=== PATIENT | female | born 1990 | race Caucasian/White ===

== ENCOUNTER 2019-02-17 16:20 | Inpatient (IN) | payer OTHER ==
[~2019-02-17] VITALS: Ht 157.5 cm; Wt 88.4 kg
[2019-02-17 16:48] VITALS: BP 118/78; PULSE 83; RESP 18; Ht 157.5 cm; Wt 88.4 kg
[2019-02-17] MEDS ORDERED: PNV11TAB PO (16:50)
[2019-02-17] MEDS ORDERED: MISOPROSTOL 200 MCG TAB PR PRN ×2 (17:00→23:00)
[2019-02-17] MEDS ORDERED: OXYTOCIN 30 UNITS/LR 500 ML IV PRN ×2 (17:00→23:00)
[2019-02-17] MEDS ORDERED: LIDOCAINE 1% (MPF) 30 ML INJ INJ PRN (17:00)
[2019-02-17] MEDS ORDERED: CARBOPROST 250 MCG INJ IM PRN ×2 (17:00→23:00)
[2019-02-17] MEDS ORDERED: BUTORPHANOL 2 MG INJ IV PRN ×2 (17:00)
[2019-02-17] MEDS ORDERED: METHYLERGONOVINE 0.2 MG INJ IM PRN ×2 (17:00→23:00)
[2019-02-17] MEDS ORDERED: OXYTOCIN 30 UNITS/LR 500 ML IV SCH (17:00)
[2019-02-17] MEDS: LACTATED RINGER'S 1,000 ML IV SCH ×3 (17:26→19:14)
--- NOTE | 2019-02-17 18:37 | PREAC ---
Date/Time of Note Date/Time of Note DATE: 02/17/19 TIME: 18:36 Anesthesia Eval and Record Evaluation Time Pre-Procedure Interview DATE: 02/17/19 TIME: 18:36 Age 28 Sex female NPO: 8 hrs Preoperative diagnosis intrauterine Planned procedure labor epidural Past Medical History Past Medical History: Includes : : (4), Para: (3) Surgery & Anesthesia Issues No known issue Meds Anticoagulation: No Beta Raymundo within 24 hr: No Reason Beta Raymundo not given: Pt. not on B-Raymundo Reported Medications [id number] ( 19) 1 Each Tablet, 1 TAB PO DAILY, TAB 02/17/19 Current Medications Lactated Ringer's 1,000 ml @ 125 mls/hr Q8H IV Last administered on 02/17/19at 18:10; Admin Dose 125 MLS/HR; Start 02/17/19 at 16:55 Butorphanol Tartrate (Stadol) 1 mg Q2H PRN IV .PAIN SCALE 1-5; Start 02/17/19 at 17:00 Butorphanol Tartrate (Stadol) 2 mg Q2H PRN IV .PAIN SCALE 6-10; Start 02/17/19 at 17:00 Lidocaine (Xylocaine 1% (Mpf)) 30 ml ONCE PRN INJ .EPISIOTOMY; Start 02/17/19 at 17:00 Oxytocin/Lactated Ringer's 500 ml @ 500 mls/hr ONCE POST IV ; Start 02/17/19 at 17:00 Oxytocin/Lactated Ringer's 500 ml @ 125 mls/hr POST IV ; Start 02/17/19 at 17:00 Oxytocin/Lactated Ringer's 500 ml @ 0 mls/hr ONCE PRN IV .VAGINAL BLEEDING; Start 02/17/19 at 17:00 Methylergonovine Maleate (Methergine) 0.2 mg ONCE PRN IM .VAGINAL BLEEDING; Start 02/17/19 at 17:00 Carboprost Tromethamine (Hemabate) 250 mcg ONCE PRN IM .VAGINAL BLEEDING; Start 02/17/19 at 17:00 Misoprostol (Cytotec) 1,000 mcg ONCE PRN NE .VAGINAL BLEEDING; Start 02/17/19 at 17:00 Meds reviewed: Yes Allergies Coded Allergies: No Known Allergy (Unverified , 02/17/19) Allergies Reviewed: Yes Labs/Studies Labs Reviewed: Reviewed by anesthesiologist Result Diagram: 02/17/19 1730 Laboratory Tests 02/17/19 17:30 test: N/A Pre-procedure Exam Last vitals Vital Signs Date Temp Pulse Resp B/P (MAP) Pulse Ox O2 O2 Flow FiO2 Time Delivery Rate 02/17/19 98.1 83 18 118/78 16:48 (91) Airway: Adequate mouth opening, Adequate thyromental dist Mallampati: Mallampati II Teeth: Normal Lung: Normal Heart: Normal ASA Physical Status ASA physical status: 2 Emergency: None Planned Anesthetic Neuraxial: Epidural Planned Pain Management Epidural, Parenteral pain med Pre-operative Attestations Prior to commencing anesthesia and surgery, the patient was re-evaluated, there was verification of: *The patient's identity *The results of appropriate recent lab work and preoperative vital signs *The above evaluation not changing prior to induction *Anesthetic plan, risk benefits, alternative and complications discussed with patient/family; questions answered; patient/family understands, accepts and wishes to proceed. BUTCH HU MD February 17, 2019 18:37
[2019-02-17] MEDS ORDERED: NALOXONE (0.4 MG/ML) INJ IV PRN (19:00)
[2019-02-17] MEDS ORDERED: FENTAnyl 2MCG/ML-ROPIV 0.2% 100 ML BAG EPI SCH (19:00)
[2019-02-17] MEDS ORDERED: ONDANSETRON 4 MG INJ IV PRN (19:00)
[2019-02-17] MEDS ORDERED: DIPHENHYDRAMINE 50 MG INJ IV PRN (19:00)
--- NOTE | 2019-02-17 19:45 | PAC ---
Date/Time of Note Date/Time of Note DATE: 02/17/19 TIME: 19:45 Post-Anesthesia Notes Post-Anesthesia Note Last documented vital signs Vital Signs Date Temp Pulse Resp B/P (MAP) Pulse Ox O2 O2 Flow FiO2 Time Delivery Rate 02/17/19 98.1 83 18 118/78 16:48 (91) Activity: WNL Respiratory function: WNL Cardiovascular function: WNL Mental status: Baseline Pain reasonably controlled: Yes Hydration appropriate: Yes Nausea/Vomiting absent: Yes Comments BP: 118/78 HR: 72 RR: 16 T: 98 SaO2: 99% BUTCH HU MD February 17, 2019 19:45
[2019-02-17] MEDS: OXYTOCIN 30 UNITS/LR 500 ML IV SCH (20:34)
--- NOTE | 2019-02-17 21:12 | HP ---
Date/Time of Note Date/Time of Note DATE: 02/17/19 TIME: 20:59 OB - History Hx of Present Free Text/Dictation 28y.o here at triage at 38w6d after SROM at 1550 on 02/17/19 with occasional UC's VE /-2 , nitrazine positive CAT II tracing with variable dec with baseline 135 visit was initiated at 10weeks ,unevenful exceopt 1hr GTT abn f/b 3hr GTT WNL, platelet low 136 Lele 01/26/19, on admission 130K GBS neg admitted for expectant management. Chief Complaint: SROM Estimated Due Date: February 25, 2019 : 4 Para: 3 Spontaneous : 0 Therapeutic : 0 Care: Good Care Ultrasounds: Normal mid trimester US Obstetrical Complications: None Medical Complications: None Past Family/Social History * Past Medical, Surgical, Family and Obstetric Histories reviewed from chart. Rubella: immune RPR/VDRL: Negative GBS Status: Negative HBsAG: Negative OB Admission Exam Vital Signs Vital Signs Vital Signs Date Temp Pulse Resp B/P (MAP) Pulse Ox O2 O2 Flow FiO2 Time Delivery Rate 02/17/19 98.1 83 18 118/78 16:48 (91) Physical Exam HEENT: WNL Heart: Rhythm Normal Lungs: Clear, Equal Abdomen: WNL Extremities: Normal Reflexes: Normal Cervical Dilatation: 5cm Effacement: 75% Station: -2 Membranes: Ruptured Amniotic Fluid: Clear Heart Rate: 130's Accelerations: Accelerations Present Decelerations: Variable Decelerations Varibility: Moderate Contractions on Admission: 6-10 Minutes Apart Intensity: Mild Last 72 hours Lab Results CBC & BMP 02/17/19 17:30 OB Assessment/Plan Reason for admission: active labor Other Assessment: IUP 38w6d in labor with SROM Plan: Expectant Management ALETHEA LEE MD February 17, 2019 21:09
--- NOTE | 2019-02-17 21:17 | LDN ---
Date/Time of Note Date/Time of Note DATE: 02/17/19 TIME: 21:13 Delivery Summary OF NORMAL MALE Weeks of Gestation 38W6D Placenta Delivered: Spontaneously, Intact & Complete Meconium: none Episiotomy: No Perineal laceration: 0 Anesthesia type: Epidural Estimated blood loss: 200 Sponge & Needle done & correct: Yes All needle counts correct: Yes Any foreign bodies felt in the: No Infant Delivery Information Sex Sex: male Apgars 1 Minute: 9 5 Minute: 9 Suctioning Nose & mouth suctioned at jl: Yes Delee suction performed: Yes Umbilical Cord Umbilical cord with: 3 Vessels Cord presentations: no nuchal cord (SPIRAL CORD) Nuchal cord present X: 0 Cord Blood was obtained: Yes Mother & Baby Disposition Disposition Mom & Baby to Maternity; Good: Yes Mom transferred to: Other Baby to NICU: No () ALETHEA LEE MD February 17, 2019 21:17
[2019-02-17 22:00] VITALS: BP 127/76; PULSE 55; RESP 18
[2019-02-17] MEDS ORDERED: LANOLIN HPA 1 PKT TOP PRN (23:00)
[2019-02-17] MEDS ORDERED: WITCH HAZEL/GLYCERIN PAD PR PRN (23:00)
[2019-02-17] MEDS ORDERED: ZOLPIDEM 5 MG TAB PO PRN (23:00)
[2019-02-17] MEDS ORDERED: BENZOCAINE 20% 56 ML SPRAY TOP PRN (23:00)
[2019-02-17] MEDS ORDERED: OXYCODONE/ASPIRIN (4.88/325) TAB PO PRN ×2 (23:00)
[2019-02-18 00:30] VITALS: BP 126/72; PULSE 70; RESP 18
[2019-02-18] MEDS: IBUPROFEN 600 MG TAB PO SCH ×4 (00:48→18:12)
[2019-02-18] MEDS: OXYTOCIN 30 UNITS/LR 500 ML IV SCH (01:02)
[2019-02-18 04:20] VITALS: BP 129/70; PULSE 68; RESP 18
[2019-02-18 08:00] VITALS: BP 115/68; PULSE 74; RESP 16
[2019-02-18] MEDS: SENNA/DOCUSATE NA (8.6MG/50MG) TAB PO SCH ×2 (09:03→22:30)
[2019-02-18 15:51] VITALS: BP 111/56; PULSE 79; RESP 18
--- NOTE | 2019-02-18 19:37 | QN ---
Documentation Comment no b.m yet no c/o vss afebrile fundus firm lochia min calf neg for tenderness A stable #1 P d/s home in am ALETHEA LEE MD February 18, 2019 19:37
[2019-02-18 20:20] VITALS: BP 128/80; PULSE 62; RESP 18
[2019-02-19] MEDS: IBUPROFEN 600 MG TAB PO SCH ×3 (00:25→11:49)
[2019-02-19 03:37] VITALS: BP 112/60; PULSE 72; RESP 18
[2019-02-19 07:15] VITALS: BP 126/82; PULSE 64; RESP 18
[2019-02-19] MEDS ORDERED: DIPHTH/TET/ACEL PERTUSS (ADULT) 0.5 ML VIAL IM* ONE (09:00)
[2019-02-19] MEDS: SENNA/DOCUSATE NA (8.6MG/50MG) TAB PO SCH (09:50)
--- NOTE | 2019-02-20 13:40 | DS ---
Date/Time of Note Date/Time of Note DATE: 02/20/19 TIME: 13:39 Obstetrical Discharge Record Final Diagnosis Final Diagnosis: Term delivered Other Final Diagnosis day #2 Status post Patient stable and afebrile Vital signs stable Hematology - 72 Hrs Test 02/17/19 17:30 02/18/19 09:00 Hematocrit 36.4 % (37.0-47.0) L 31.8 % (37.0-47.0) L Hemoglobin 11.9 g/dl (12.0-16.0) L 10.5 g/dl (12.0-16.0) L Mean Corpuscular 28.2 pg (29.0-33.0) L 28.2 pg (29.0-33.0) L Hemoglobin Mean Corpuscular 32.7 g/dl (32.0-37.0) 33.0 g/dl (32.0-37.0) Hemoglobin Concent Mean Corpuscular Volume 86.3 fl (82.0-101.0) 85.3 fl (82.0-101.0) Mean Platelet Volume 13.5 fl (7.4-10.4) H 13.7 fl (7.4-10.4) H Platelet Count 130 10^3/UL (140-415) L 120 10^3/UL (140-415) L Red Blood Count 4.22 10^6/ul (4.20-5.40) 3.73 10^6/ul (4.20-5.40) L Red Cell Distribution 14.5 % (11.5-14.5) 14.5 % (11.5-14.5) Width White Blood Count 10.8 10^3/ul (4.8-10.8) 12.5 10^3/ul (4.8-10.8) H Abdomen soft, fundus firm Perineum intact Extremities nontender Assessment and plan Patient stable and doing well Plan to discharge home Patient instructed to follow-up with her own ENDOSCOPY TECHNICAN in 2 and 6 weeks Vaginal Delivery Obstetrical Delivery: Spontaneous Condition on Discharge Physical Assessment Last Vitals: VS - Last 72 Hours, by Label Date Temp Pulse Resp B/P (MAP) Pulse Ox O2 O2 Flow FiO2 Time Delivery Rate 02/19/19 98.3 64 18 126/82 Room Air 07:15 (97) 5/11/19 98.2 72 18 112/60 Room Air 03:37 (77) 02/18/19 98.0 62 18 128/80 Room Air 20:20 (96) 02/18/19 98.4 79 18 111/56 Room Air 15:51 (74) 02/18/19 98.1 74 16 115/68 Room Air 08:00 (84) 02/18/19 98.6 68 18 129/70 Room Air 04:20 (89) 02/18/19 98.6 70 18 126/72 Room Air 00:30 (90) 02/17/19 98.6 55 18 127/76 Room Air 22:00 (93) 02/17/19 98.1 83 18 118/78 16:48 (91) Voiding: Yes Bowel Movement: Yes Breast: Soft, non-tender Fundus: Firm Calf Tenderness: No Patient Condition: Good Copies To: CC: ELIAS JERONIMO ; MOIRA SOLIZ MD February 20, 2019 13:40
--- NOTE | 2019-02-20 15:40 | DELSUM ---
Delivery Summary A-C Datetime Report Generated by CPN: 02/20/2019 15:40 DELIVERY PERSONNEL Orthopedically Impaired Teacher: Tersigni, Juana MATERNAL INFORMATION Delivery Anesthesia: Epidural Medications in Delivery: LR with 30 units of pitocin Delivery QBL (ml): 200 Placenta Cultured: No Maternal Complications: None LABOR SUMMARY EDC: 02/25/2019 00:00 No. Babies in Womb: 1 Attempted: No Labor Anesthesia: Epidural LABOR INFORMATION Reason for Induction: Not Applicable Onset of Labor: 02/17/2019 16:36 Complete Dilatation: 02/17/2019 20:08 Oxytocin: N/A Group B Beta Strep: Negative Antibiotics # of Doses: 0 Steroids Given: None Reason Steroids Not Administered: Not Applicable MEMBRANES Membranes Rupture Method: Spontaneous Rupture of Membranes: 02/17/2019 15:00 Length of Rupture (hr): 5.35 Amniotic Fluid Color: Clear Amniotic Fluid Amount: Moderate Amniotic Fluid Odor: None STAGES OF LABOR Stage 1 hr: 3 Stage 1 min: 32 Stage 2 hr: 0 Stage 2 min: 13 Stage 3 hr: 0 Stage 3 min: 4 Total Time in Labor hr: 3 Total Time in Labor min: 49 VAGINAL DELIVERY Episiotomy: None Laceration Extension: N/A Laceration Type: None Laceration Repair: Not Applicable Initial Vag Sponge Count: 10 Final Vag Sponge Count: 10 Initial Vag Sharps Count: 1 Final Vag Sharps Count: 1 Sponge Count Correct: Yes; Vaginal Sweep Performed Sharps Count Correct: Yes BABY A INFORMATION Delivery Date/Time: 02/17/2019 20:21 Method of Delivery: Vaginal Born in Route : No : N/A Forceps: N/A Vacuum Extraction: N/A Shoulder Dystocia : N/A SHOULDER DYSTOCIA BABY A Infant Delivery Date/Time: 02/17/2019 20:21 PRESENTATION/POSITION BABY A Presentation: Cephalic Cephalic Presentation: Vertex Vertex Position: Left Occipital Anterior Breech Presentation: N/A PLACENTA INFORMATION BABY A Placenta Delivery Time : 02/17/2019 20:25 Placenta Method of Delivery: Spontaneous Placenta Status: Delivered SCORES BABY A Heart Rate 1 min: >100 bpm Resp Effort 1 min: Good Cry Reflex Irritability 1 min: Cough/Sneeze/Pulls Away Muscle Tone 1 min: Active Motion Color 1 min: Body [place], Extremit Blue Resuscitation Effort 1 min: Tactile Stimulation SCORE 1 MIN: 9 Heart Rate 5 min: >100 bpm Resp Effort 5 min: Good Cry Reflex Irritability 5 min: Cough/Sneeze/Pulls Away Muscle Tone 5 min: Active Motion Color 5 min: Body Cordry [place], Extremit Blue Resuscitation Effort 5 min: Tactile Stimulation SCORE 5 MIN: 9 INFANT INFORMATION BABY A Gestational Age at Delivery: 38.6 Gestational Status: Early Term- 37- 38.6 Weeks Infant Outcome : Liveborn Condition : Stable Infant Sex: Male IDENTIFICATION/MEDS BABY A ID Band Number: [id number] ID Band Location: Right Leg; Left Arm Sensor Applied: Yes Sensor Number: [id number] Sensor Location : Cord Clamp Vitamin K Given : Not Given Erythromycin Given: Not Given WEIGHT/LENGTH BABY A Birthweight (gm): 3465 Weight (lb): 7 Infant Weight (oz): 10 Infant Length (in): 19.00 Length (cm): 48.26 CORD INFORMATION BABY A No. Cord Vessels: 3 Nuchal Cord : N/A Cord Blood Taken: Yes Infant Suction: Mouth; Nose ASSESSMENT BABY A Infant Complications: None Physical Findings at Delivery: Molding of the Head; Within Normal Limits Respirations: Appears Normal [place] Man/ALS Called : No Care By: Bry YANG Transferred To: Remains with Mother
== END 2019-02-19 15:40 | disposition home or self-care (01) | DRG 807 ==
LOC: OBT 16:20 → L-D 16:21 → OBT 16:50 → PP1 21:59
PROVIDERS: ADMIT Obstetrics & Gynecology; ATTEND Obstetrics & Gynecology
PROC: 10E0XZZ Delivery of Products of Conception, External Approach (ICD-10-PCS; principal; 2019-02-17)
DX: O76 Abnormality in fetal heart rate and rhythm complicating labor and delivery (principal); Z37.0 Single live birth; Z3A.38 38 weeks gestation of pregnancy
CPT/HCPCS: 62322; 85025; 85610; 85730; 86592; 86850; 86900; 86901; 87340; 90715; G0463; J2590; J3010; J7120